=== PATIENT | male | born 1995 | race Caucasian/White ===

== ENCOUNTER 2016-10-13 12:53 | Emergency (ER) | payer MEDICAID ==
[~2016-10-13] VITALS: Ht 170.2 cm; Wt 79.5 kg
[2016-10-13 13:32] VITALS: Ht 170.2 cm; Wt 79.5 kg
[2016-10-13] MEDS ORDERED: BENZ100C70 PO (14:41)
[2016-10-13] MEDS ORDERED: UDROBDM PO (14:42)
[2016-10-13] MEDS ORDERED: ACET500C5 PO (14:42)
--- NOTE | 2016-10-13 14:55 | ERD ---
ER Documentation Chief Complaint Date/Time DATE: 10/13/16 TIME: 14:52 Chief Complaint Pt with fever, body ache, cough and congestion X 5 days. HPI Patient is a 21-year-old male who presents to the ED for fever, body aches, cough, sore throat and congestion for 4 days. He states that he had a fever on Tuesday and Tuesday but no fevers in the last 2 days. He complains of a productive cough. He also complains of body aches. He denies chills, nausea, vomiting or diarrhea. He denies headache or dizziness. He denies abdominal pain. Denies leg pain or swelling. He denies shortness of breath or chest pain. States that his family has had similar symptoms at home. ROS All systems reviewed and are negative except as per history of present illness. Medications Home Meds Active Scripts Guaifenesin-Dextromethorphan* (Robitussin* DM) 100MG/10MG/5ML Syrup, 5 ML PO Q4H Y for COUGH for 14 Days, ML Prov:SUKHDEVTARICHARLIE CEDEÑO PA-C 10/13/16 Acetaminophen* (Tylophen*) 500 Mg Capsule, 1 CAP PO Q6H Y for PAIN AND OR ELEVATED TEMP, #20 CAP Prov:SUKHDEVTARIANCHARLIE PA-C 10/13/16 Benzonatate* (Tessalon Perle*) 100 Mg Capsule, 100 MG PO Q8H Y for COUGH for 14 Days, CAP Prov:SHOOSHTARIANZAHRAAZ PA-C 10/13/16 PMhx/Soc History of Surgery: No Anesthesia Reaction: No Hx Neurological Disorder: No Hx Respiratory Disorders: No Hx Cardiac Disorders: No Hx Psychiatric Problems: No Hx Miscellaneous Medical Probl: No Hx Alcohol Use: No Hx Substance Use: No Hx Tobacco Use: No Smoking Status: Never smoker FmHx Family History: No coronary disease, No diabetes, No other Physical Exam Vitals Vital Signs Date Time Temp Pulse Resp B/P Pulse Ox O2 Delivery O2 Flow Rate FiO2 10/13/16 13:32 98.3 81 18 124/73 99 Physical Exam GENERAL: Well-developed, well-nourished male. Appears in no acute distress. HEAD: Normocephalic, atraumatic. EYES: Pupils are equally reactive bilaterally. EOMs grossly intact. No conjunctival erythema. ENT: Moist mucous membranes. No uvula deviation. No kissing tonsils. No exudates. erythematous throat. NECK: Supple. No lymphadenopathy or thyromegaly. No meningismus. negative kernig. negative brudinski LUNG: Clear to auscultation bilaterally. No rhonchi, wheezing, rales or coarse breath sounds. HEART: Regular rate and rhythm. No murmurs, rubs or gallops. BACK: No midline tenderness. Extremities: Equal pulses bilaterally. No peripheral clubbing, cyanosis or edema. No unilateral leg swelling. NEUROLOGIC: Alert and oriented. Moving all four extremities. 5/5 strength in all extremities. Normal speech. Steady gait. SKIN: Normal color. Warm and dry. No rashes or lesions. Capillary refill < 2 seconds Procedures/MDM ER COURSE: I kept the patient and/or family informed of laboratory and diagnostic imaging results throughout the emergency room course. MEDICAL DECISION MAKING: This is a 21-year-old male who presents with cough, fever, sore throat. Vital signs were reviewed. Patient is afebrile. Patient is not hypoxic. Patient is not toxic or ill-appearing. Temperature 98.3, blood pressure 124/73, O2 sat 99. Patient likely has URI versus bronchitis. I will be treating him with antibiotics. I will be giving him a Z-Ramon, Tessalon Perles, Robitussin and Tylenol. Low suspicion for peritonsillar abscess, strep pharyngitis, mononucleosis, dental abscess. Low suspicion for pneumonia, PE, pneumothorax, ACS, epiglottitis, obstruction, TB, pertussis, meningitis, sepsis DISCHARGE: At this time, patient is stable for discharge and outpatient management with no new complaints during the ER course. Patient was sent home with Z-Ramon, Tylenol, Robitussin and Tessalon Perles a note for work was also given to patient.. Patient will be discharged home with instructions to recheck for new or worsening symptoms such as fever, nausea, weakness, LOC and to follow up with primary care in the next 1-2 days. Patient was advised to return to the ER for any new or worsening symptoms. Plan was discussed and patient and/or family understands and agrees. Home instructions were given. Departure Diagnosis: Primary Impression: Upper respiratory infection URI type: unspecified URI Qualified Code: J06.9 - Upper respiratory tract infection, unspecified type Condition: Stable Patient Instructions: Preventing Common Respiratory Infections Additional Instructions: Call your primary care doctor TOMORROW for an appointment during the next 1-2 days.See the doctor sooner or return here if your condition worsens before your appointment time. CHARLIE RAINEY PA-C Oct 13, 2016 14:55 CHARLIE RAINEY PA-C Oct 13, 2016 14:55
== END 2016-10-13 14:44 | disposition home or self-care (01) ==
LOC: E/R 12:53
DX: J06.9 Acute upper respiratory infection, unspecified (principal)
CPT/HCPCS: 99283